=== PATIENT | female | born 1995 | race Caucasian/White ===

== ENCOUNTER → 2020-11-07 | Outpatient (CLI) | payer SELFPAY ==
--- NOTE | 2020-11-08 | VUL_PTH ---
PATIENT: MARISSA VALENZUELA LOC: [facility] U#:[id number] AGE/SX: 25/ ROOM: RE11/07/[address]: Dr. Rene Locke MD : 1995 BED: DIS: 11/07/2020 SPEC #: [id number] RECD: 11/08/20 10:34 STATUS: MAURO REHeather #: [id number] CONCEPCIÓN: 11/08/20 00:[address]: Rene Locke DEPT: SURGICAL PATHOLOGY RECD BY: Navi Fischer ENTERED: 11/08/20 10:34 SP TYPE: VULVA BX OTHR DR: CHRIS Diez Tissues: Vulva, NOS Procedures: Surgery Specimen Level IV HEADER OPERATION: Right vulvar polyp removal PRE-OP DIAGNOSIS: N84.3 TISSUE SUBMITTED: Vulvar polyp MICROSCOPIC DIAGNOSIS Vulvar polyp, biopsy: Granulation with associated acute and chronic inflammation. See comment AM:sadie 11/09/2020 COMMENT An epithelial lining is not present. Clinical correlation is suggested. MICROSCOPIC DESCRIPTION Slides are reviewed. GROSS DESCRIPTION Received in fixative is one container labeled with the patient's name and designated vulvar polyp. The specimen consists of two polypoid pieces of grossman-pink soft tissue measuring 1 x 0.7 x 0.2 cm and 0.5 x 0.2 x 0.1 cm. The entire specimen is submitted in one cassette. / SJ:sadie 11/08/20 TC:1 CPT: [id number]
== END | disposition home or self-care (01) ==
LOC: LABSPEC 11-08 09:20
PROVIDERS: PCP Physician Assistant; Visit Provider Obstetrics & Gynecology
DX: Z12.4 Encounter for screening for malignant neoplasm of cervix (principal); N84.3 Polyp of vulva
CPT/HCPCS: 88175; 88305; G0145